=== PATIENT | male | born 1995 | race Caucasian/White ===

== ENCOUNTER 2016-11-09 18:10 | Emergency (ER) | payer SELFPAY ==
[~2016-11-09] VITALS: Ht 188 cm; Wt 83.9 kg
[~2016-11-09 18:10] MED LIST: PRED25PO13 MC
[2016-11-09 18:22] VITALS: BP 146/79
== END 2016-11-09 19:05 | disposition home or self-care (01) ==
LOC: ER 18:13
DX: S01.112A Laceration without foreign body of left eyelid and periocular area, initial encounter (principal); W22.8XXA Striking against or struck by other objects, initial encounter; Y92.091 Bathroom in other non-institutional residence as the place of occurrence of the external cause; Y93.89 Activity, other specified; Y99.8 Other external cause status
CPT/HCPCS: A4606; Z7610